=== PATIENT | female | born 1980 | race Caucasian/White ===

== ENCOUNTER 2021-11-19 12:01 | Emergency (ER) | payer BC ==
[~2021-11-19] VITALS: Ht 170.2 cm; Wt 54.4 kg
--- NOTE | 2021-11-19 12:05 | NUR ---
[id number], PULLED OVER & CALLED 911. "FELT LIGHTHEADED, ABT TO PASS OUT WHILE DRIVING, LIGHTHEADED, NAUSEA, VOMITING", +COVID x 4DAYS. 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 PATIENT AAO x 4. NOT IN DISTRESS. AWAITING MD DAVILA.
--- NOTE | 2021-11-19 12:32 | NUR ---
DR ARIAS AT BEDSIDE
--- NOTE | 2021-11-19 12:35 | NUR ---
PER PT, UNABLE TO PROVIDE URINE AT THIS TIME SHE JUST WENT TO THE BATHROOM BEFORE SPECIMEN BOTTLE WAS PROVIDED.
--- NOTE | 2021-11-19 12:50 | NUR ---
IV LINE ESTABLISHED ON LAC #20, BLOOD DRAWN AND SENT TO LAB. IV FLUID INITIATED.
[2021-11-19] MEDS ORDERED: IV NS 0.9% 1,000 ML IV ONE (13:00)
[2021-11-19 13:17] LABS: BASOPHILS % (AUTO) 0.3 % (0.0-2.0); EOSINOPHILS % (AUTO) 10.4 % (0.0-6.0); HEMATOCRIT 42 % (33-45); HEMOGLOBIN 14.3 g/dL (11.5-14.8); LYMPHOCYTES # (AUTO) 1.4 K/uL (0.8-4.8); LYMPHOCYTES % (AUTO) 15.8 % (20.0-44.0); MEAN CORPUSCULAR HGB CONC 34 g/dl (31.0-36.0); MEAN CORPUSCULAR VOLUME 93 fL (82-100); MONOCYTES # (AUTO) 0.7 K/uL (0.1-1.30); MONOCYTES % (AUTO) 7.3 % (2.0-12.0); NEUTROPHILS % (AUTO) 66.2 % (43.0-81.0); PLATELET COUNT (AUTO) 214 K/uL (150-450); RED BLOOD CELL COUNT(AUTO) 4.54 MIL/uL (4.0-5.2); WHITE BLOOD COUNT (AUTO) 9.1 K/uL (4.3-11.0)
[2021-11-19 13:27] LABS: CALCIUM, SERUM 9.1 mg/dL (8.5-10.1); CREATININE 0.7 mg/dL (0.6-1.3); POTASSIUM 3.6 mmol/L (3.5-5.1)
[2021-11-19 13:34] LABS: ALBUMIN 4.1 g/dL (3.4-5.0); BILIRUBIN,TOTAL 0.4 mg/dL (0.2-1.0); TOTAL PROTEIN, SERUM 7.8 g/dL (6.4-8.2)
[2021-11-19 13:37] LABS: MAGNESIUM 2.2 mg/dL (1.8-2.4)
[2021-11-19] MEDS ORDERED: FAMOTIDINE/PF INJ 20 MG/2 ML VIAL IV ONE ×2 (14:00→14:13)
[2021-11-19] MEDS ORDERED: MAG HYDROX/AL HYDROX/SIMETH 30 ML UDC PO ONE (14:00)
[2021-11-19] MEDS ORDERED: ONDANSETRON HCL/PF - ER 4 MG/2 ML VIAL IV ONE (14:00)
[2021-11-19] MEDS ORDERED: MAG HYDROX/AL HYDROX/SIMETH 30 ML UDC ONE (14:13)
[2021-11-19] MEDS ORDERED: ONDANSETRON HCL/PF 4 MG/2 ML VIAL ONE (14:13)
--- NOTE | 2021-11-19 14:40 | NUR ---
URINE COLLECTED AND SENT TO LAB
[2021-11-19] MEDS ORDERED: ONDA4TAB5 PO (15:01)
[2021-11-19] MEDS ORDERED: FAMO20TA8 PO (15:01)
[2021-11-19 15:10] LABS: BILIRUBIN,URINE NEGATIVE (NEGATIVE); COLOR,URINE YELLOW (YELLOW); LEUKOCYTE ESTERASE ,URINE NEGATIVE (NEGATIVE); NITRITE, URINE NEGATIVE (NEGATIVE); PROTEIN,URINE NEGATIVE (NEGATIVE); UGLUCOSE NEGATIVE (NEGATIVE); UROBILINOGEN,URINE 0.2 EU/dL (0.2)
[2021-11-19 15:16] LABS: PH,URINE >8.5 (5.0-8.0)
[2021-11-19 15:20] LABS: BACTERIA,URINE RARE /HPF (None Seen); URINE AMORPHOUS PHOSPHATES Few /HPF (None Seen); WBC,URINE 0-2 /HPF (0-3)
[2021-11-19 15:21] LABS: MUCUS,URINE Few /LPF (None Seen)
[2021-11-19 15:28] VITALS: BP 114/69
--- NOTE | 2021-11-19 15:28 | NUR ---
Patient discharged to home in stable condition. Written and verbal after care instructions given. Patient verbalizes understanding of instruction.
--- NOTE | 2021-11-19 15:28 | NUR ---
IV removed. Catheter intact and site benign. Pressure and 4x4 applied to site. No bleeding noted.
== END 2021-11-19 15:29 | disposition home or self-care (01) ==
LOC: ER 12:08
DX: U07.1 COVID-19 (principal); R55 Syncope and collapse; Z79.899 Other long term (current) drug therapy
CPT/HCPCS: 99285; 96374; 71045; 96361; 96375; 93005; 85025; 83735; 85378; 84703; 81001; 36415; 80053; 84702; J3490; J2405; J7030